=== PATIENT | female | born 1955 | race Caucasian/White ===

== ENCOUNTER 2021-06-05 01:26 | Observation (INO) | payer MEDICARE, OTHER ==
[2021-06-05] MEDS ORDERED: Sodium Chloride 0.9% 10 ML Syringe FLUSH PRN (01:50)
[2021-06-05] MEDS ORDERED: HYDROmorphone 1 MG/ML Syringe IVPUSH ONE (02:19)
[2021-06-05 02:41] LABS: ANION GAP 15.5 mmol/L (5-15); CHLORIDE,CL 97 mmol/L (98-107); SODIUM,NA 132 mmol/L (136-145)
[2021-06-05] MEDS ORDERED: HYDROmorphone 1 MG/ML Syringe IVPUSH PRN (03:37)
[2021-06-05] MEDS ORDERED: Acetaminophen 325 MG Tab PO PRN (05:39)
== END 2021-06-05 11:30 | disposition home or self-care (01) ==
LOC: KA.ED 01:26 → KA.MS 03:43 → UNDOADMOB 03:43 → KA.MS 03:48
PROVIDERS: ADMIT Family Medicine; ATTEND Family Medicine
DX: M79.622 Pain in left upper arm (principal); R79.89 Other specified abnormal findings of blood chemistry; D72.829 Elevated white blood cell count, unspecified; I10 Essential (primary) hypertension; E78.5 Hyperlipidemia, unspecified; K57.30 Diverticulosis of large intestine without perforation or abscess without bleeding; F32.A Depression, unspecified; M81.0 Age-related osteoporosis without current pathological fracture; F17.200 Nicotine dependence, unspecified, uncomplicated; E66.9 Obesity, unspecified; Z68.37 Body mass index [BMI] 37.0-37.9, adult; Z98.890 Other specified postprocedural states; Z79.899 Other long term (current) drug therapy; Z20.822 Contact with and (suspected) exposure to COVID-19
CPT/HCPCS: 36415; 71046; 73030; 80048; 81001; 84484; 85025; 85379; 93971; 96374; 99284; A9270; G0378; J1170; U0002

== ENCOUNTER 2022-10-29 10:24 | Observation (INO) | payer MEDICARE, OTHER ==
[2022-10-29] MEDS ORDERED: Sodium Chloride 0.9% 10 ML Syringe FLUSH PRN (10:26)
[2022-10-29 10:34] LABS: BASOPHILS ABSOLUTE AUTO 0.02 10^3/uL (0.00-0.10); BASOPHILS PERCENT AUTO 0.2 % (0.0-1.0); EOSINOPHILS ABSOLUTE AUTO 0.03 10^3/uL (0.10-0.30); EOSINOPHILS PERCENT AUTO 0.3 % (1.0-3.0); HEMATOCRIT 44.9 % (37.0-47.0); HEMOGLOBIN 14.6 g/dL (12.0-16.0); IMMATURE GRAN ABSOLUTE AUTO 0.02 10^3/uL (0.00-0.50); IMMATURE GRAN PERCENT AUTO 0.2 % (0.0-5.0); LYMPHOCYTES ABSOLUTE AUTO 0.94 10^3/uL (1.00-4.00); LYMPHOCYTES PERCENT AUTO 10.1 % (20.0-40.0); MEAN CORPUSCULAR HEMOGLOBIN 28.2 pg (27.0-31.0); MEAN CORPUSCULAR HGB CONC 32.5 g/dL (32.0-36.0); MEAN CORPUSCULAR VOLUME 86.8 fL (82.0-92.0); MEAN PLATELET VOLUME 9.1 fL (7.4-10.4); MONOCYTES ABSOLUTE AUTO 0.22 10^3/uL (0.10-0.80); MONOCYTES PERCENT AUTO 2.4 % (2.0-8.0); NEUTROPHILS ABSOLUTE AUTO 8.05 10^3/uL (2.50-7.00); NEUTROPHILS PERCENT AUTO 86.8 % (50.0-70.0); PLATELET COUNT,PLT 459 10^3/uL (150-400); RED BLOOD CELL COUNT 5.17 10^6/uL (3.80-5.50); RED CELL DISTRIBUTION WIDTH 13.1 % (11.5-14.5); WHITE BLOOD CELL COUNT,WBC 9.28 10^3/uL (5.00-10.00)
[2022-10-29 10:52] LABS: ALBUMIN 2.6 g/dL (3.40-5.00); BILIRUBIN TOTAL 0.2 mg/dL (0.2-1.0); CALCIUM 8.7 mg/dL (8.7-10.3); CARBON DIOXIDE,CO2 28.8 mmol/L (21.0-32.0); CREATININE 0.52 mg/dL (0.51-1.17); EST CRCL DRUG DOSING (CG) 95.76 mL/min; POTASSIUM,K 3.8 mmol/L (3.5-5.1); PROTEIN TOTAL,TP 7.8 g/dL (6.4-8.2)
[2022-10-29] MEDS ORDERED: Ketorolac 30 MG/ML SDV IVPUSH ONE (10:54)
[2022-10-29] MEDS ORDERED: Prochlorperazine 10 MG/2 ML SDV IVPUSH ONE (10:54)
[2022-10-29] MEDS ORDERED: hydrALAZINE 20 MG/ML SDV IVPUSH ONE ×2 (11:03→11:41)
[2022-10-29 11:04] LABS: INR 1.2 (0.9-1.1); PTT,PARTIAL THROMBOPLSTIN TIME 33.1 SEC (22.8-31.4)
[2022-10-29] MEDS ORDERED: LORazepam 2 MG/ML SDV IVPUSH ONE (12:12)
[2022-10-29] MEDS ORDERED: Non-Formulary Medication 1 Each (Losartan [Cozaar] 100 MG Tablet) PO SCH (12:45)
[2022-10-29] MEDS ORDERED: Pregabalin 25 MG Cap ONE (13:20)
[2022-10-29] MEDS: amLODIPine 2.5 MG Tab PO SCH (13:51)
[2022-10-29] MEDS: Venlafaxine 150 MG Cap.ER PO SCH (13:51)
[2022-10-29] MEDS: Pregabalin 25 MG Cap PO SCH ×2 (13:52→20:17)
[2022-10-29] MEDS: Losartan 50 MG Tab PO SCH (13:52)
[2022-10-29] MEDS ORDERED: PREGABALIN 50 MG PO SCH (14:00)
[2022-10-29] MEDS ORDERED: Labetalol 100 MG/20 ML MDV IVPUSH ONE ×2 (16:44→17:28)
[2022-10-29] MEDS ORDERED: amLODIPine 2.5 MG Tab PO ONE (17:33)
[2022-10-29] MEDS ORDERED: Acetaminophen 325 MG Tab PO PRN (17:47)
[2022-10-29] MEDS: hydrALAZINE 50 MG Tab PO SCH ×2 (20:17)
[2022-10-29] MEDS: Acetaminophen 650 MG Tab.ER PO PRN (22:30)
[2022-10-30] MEDS: Labetalol 100 MG/20 ML MDV IVPUSH PRN (06:28)
[2022-10-30 06:51] LABS: BASOPHILS ABSOLUTE AUTO 0.01 10^3/uL (0.00-0.10); BASOPHILS PERCENT AUTO 0.1 % (0.0-1.0); EOSINOPHILS ABSOLUTE AUTO 0.05 10^3/uL (0.10-0.30); EOSINOPHILS PERCENT AUTO 0.5 % (1.0-3.0); HEMATOCRIT 43.8 % (37.0-47.0); HEMOGLOBIN 14.2 g/dL (12.0-16.0); IMMATURE GRAN ABSOLUTE AUTO 0.02 10^3/uL (0.00-0.50); IMMATURE GRAN PERCENT AUTO 0.2 % (0.0-5.0); LYMPHOCYTES ABSOLUTE AUTO 1.72 10^3/uL (1.00-4.00); LYMPHOCYTES PERCENT AUTO 15.8 % (20.0-40.0); MEAN CORPUSCULAR HEMOGLOBIN 28.2 pg (27.0-31.0); MEAN CORPUSCULAR HGB CONC 32.4 g/dL (32.0-36.0); MEAN CORPUSCULAR VOLUME 87.1 fL (82.0-92.0); MEAN PLATELET VOLUME 8.8 fL (7.4-10.4); MONOCYTES ABSOLUTE AUTO 0.57 10^3/uL (0.10-0.80); MONOCYTES PERCENT AUTO 5.2 % (2.0-8.0); NEUTROPHILS ABSOLUTE AUTO 8.55 10^3/uL (2.50-7.00); NEUTROPHILS PERCENT AUTO 78.2 % (50.0-70.0); PLATELET COUNT,PLT 479 10^3/uL (150-400); RED BLOOD CELL COUNT 5.03 10^6/uL (3.80-5.50); RED CELL DISTRIBUTION WIDTH 13.2 % (11.5-14.5); WHITE BLOOD CELL COUNT,WBC 10.92 10^3/uL (5.00-10.00)
[2022-10-30] MEDS: hydrALAZINE 50 MG Tab PO SCH ×3 (08:36→21:26)
[2022-10-30] MEDS: Venlafaxine 150 MG Cap.ER PO SCH (08:37)
[2022-10-30] MEDS: Losartan 50 MG Tab PO SCH (08:37)
[2022-10-30] MEDS: amLODIPine 2.5 MG Tab PO SCH (08:38)
[2022-10-30] MEDS: Pregabalin 25 MG Cap PO SCH ×3 (08:38→21:27)
[2022-10-30 10:58] LABS: ANION GAP 10.2 mmol/L (5-15); CALCIUM 8.9 mg/dL (8.7-10.3); CARBON DIOXIDE,CO2 29.1 mmol/L (21.0-32.0); CREATININE 0.49 mg/dL (0.51-1.17); EST CRCL DRUG DOSING (CG) 101.62 mL/min; POTASSIUM,K 3.3 mmol/L (3.5-5.1); TSH ULTRASENSITIVE 0.683 uIU/mL (0.340-4.820)
[2022-10-30] MEDS: Acetaminophen 650 MG Tab.ER PO PRN ×2 (11:11→21:27)
[2022-10-30] MEDS ORDERED: Nicotine 14 MG/24 Hr Patch TRDERM ONE (11:21)
[2022-10-30] MEDS ORDERED: Potassium Chloride 20 MEQ Tab.ER PO ONE (11:25)
[2022-10-30] MEDS ORDERED: Iopamidol 755 Mg/ML 100 ML Bottle IV ONE (11:32)
[2022-10-30] MEDS: LORazepam 0.5 MG Tab PO SCH ×2 (11:34→23:08)
[2022-10-30] MEDS ORDERED: Sodium Chloride 0.9% 50 ML IV SCH (11:45)
[2022-10-30] MEDS ORDERED: LORazepam 0.5 MG Tab PO ONE (14:37)
[2022-10-30] MEDS ORDERED: Ketorolac 30 MG/ML SDV IVPUSH ONE (14:38)
[2022-10-30] MEDS ORDERED: Famotidine 20 MG Tab PO ONE (14:39)
[2022-10-30] MEDS ORDERED: amLODIPine 2.5 MG Tab PO ONE (17:48)
[2022-10-30] MEDS: Sodium Chloride 0.9% 10 ML Syringe FLUSH PRN ×2 (21:00→21:15)
[2022-10-31] MEDS: Acetaminophen 650 MG Tab.ER PO PRN (06:38)
[2022-10-31] MEDS: Pregabalin 25 MG Cap PO SCH ×3 (06:39→13:04)
[2022-10-31] MEDS: Losartan 50 MG Tab PO SCH ×2 (06:39→07:59)
[2022-10-31] MEDS: Venlafaxine 150 MG Cap.ER PO SCH ×2 (06:40→07:59)
[2022-10-31] MEDS: hydrALAZINE 50 MG Tab PO SCH ×3 (06:40→13:04)
[2022-10-31 07:20] LABS: BASOPHILS ABSOLUTE AUTO 0.07 10^3/uL (0.00-0.10); BASOPHILS PERCENT AUTO 0.6 % (0.0-1.0); EOSINOPHILS ABSOLUTE AUTO 0.22 10^3/uL (0.10-0.30); EOSINOPHILS PERCENT AUTO 1.7 % (1.0-3.0); HEMATOCRIT 47.1 % (37.0-47.0); HEMOGLOBIN 15.3 g/dL (12.0-16.0); IMMATURE GRAN ABSOLUTE AUTO 0.02 10^3/uL (0.00-0.50); IMMATURE GRAN PERCENT AUTO 0.2 % (0.0-5.0); LYMPHOCYTES ABSOLUTE AUTO 1.69 10^3/uL (1.00-4.00); LYMPHOCYTES PERCENT AUTO 13.4 % (20.0-40.0); MEAN CORPUSCULAR HEMOGLOBIN 28.2 pg (27.0-31.0); MEAN CORPUSCULAR HGB CONC 32.5 g/dL (32.0-36.0); MEAN CORPUSCULAR VOLUME 86.9 fL (82.0-92.0); MEAN PLATELET VOLUME 8.7 fL (7.4-10.4); MONOCYTES ABSOLUTE AUTO 0.67 10^3/uL (0.10-0.80); MONOCYTES PERCENT AUTO 5.3 % (2.0-8.0); NEUTROPHILS ABSOLUTE AUTO 9.91 10^3/uL (2.50-7.00); NEUTROPHILS PERCENT AUTO 78.8 % (50.0-70.0); PLATELET COUNT,PLT 550 10^3/uL (150-400); RED BLOOD CELL COUNT 5.42 10^6/uL (3.80-5.50); RED CELL DISTRIBUTION WIDTH 13.4 % (11.5-14.5); WHITE BLOOD CELL COUNT,WBC 12.58 10^3/uL (5.00-10.00)
[2022-10-31 08:31] LABS: ANION GAP 11.9 mmol/L (5-15); CARBON DIOXIDE,CO2 28.6 mmol/L (21.0-32.0); CREATININE 0.55 mg/dL (0.51-1.17); EST CRCL DRUG DOSING (CG) 90.54 mL/min; POTASSIUM,K 3.5 mmol/L (3.5-5.1)
[2022-10-31] MEDS ORDERED: [UNRECOGNIZED DRUG - REMARK] TRDERM SCH (09:00)
[2022-10-31] MEDS ORDERED: amLODIPine 5 MG Tab PO SCH (09:00)
[2022-10-31] MEDS ORDERED: Ketorolac 30 MG/ML SDV IVPUSH ONE (09:06)
[2022-10-31] MEDS ORDERED: Hydrocortisone Sodium Succinate 100 MG/2 ML SDV IVPUSH ONE (09:10)
[2022-10-31] MEDS ORDERED: methylPREDNISolone Sodium Succinate 125 MG/2 ML SDV IVPUSH ONE (09:21)
[2022-10-31] MEDS ORDERED: Ondansetron 4 MG/2 ML SDV IVPUSH PRN (09:49)
[2022-10-31] MEDS: LORazepam 0.5 MG Tab PO SCH (10:37)
[2022-10-31] MEDS: Labetalol 100 MG/20 ML MDV IVPUSH PRN (11:22)
[2022-10-31] MEDS ORDERED: hydrALAZINE 10 MG Tab PO PRN (12:53)
== END 2022-10-31 16:53 ==
LOC: KA.ED 10:24 → KA.MS 12:17
PROVIDERS: ADMIT Physician Assistant Medical; ATTEND Nurse Practitioner Family
DX: G45.9 Transient cerebral ischemic attack, unspecified (principal); R53.1 Weakness; I16.0 Hypertensive urgency; I10 Essential (primary) hypertension; E87.6 Hypokalemia; F32.A Depression, unspecified; E78.5 Hyperlipidemia, unspecified; G62.9 Polyneuropathy, unspecified; F17.210 Nicotine dependence, cigarettes, uncomplicated; E78.00 Pure hypercholesterolemia, unspecified; E66.9 Obesity, unspecified; M05.9 Rheumatoid arthritis with rheumatoid factor, unspecified; Z79.899 Other long term (current) drug therapy; Z98.890 Other specified postprocedural states; Z90.710 Acquired absence of both cervix and uterus; Z90.49 Acquired absence of other specified parts of digestive tract; Z88.8 Allergy status to other drugs, medicaments and biological substances; Z91.041 Radiographic dye allergy status; Z68.35 Body mass index [BMI] 35.0-35.9, adult
CPT/HCPCS: 36415; 51702; 70450; 70496; 70498; 71045; 80048; 80053; 83735; 84443; 84484; 85025; 85610; 85652; 85730; 93005; 96374; 96375; 96376; 99285-25; A9270-GY; G0378; J0360; J0780; J1885; J2060; J2930; J3490; Q3014; Q9967